=== PATIENT | female | born 1960 | race Caucasian/White ===

== ENCOUNTER 2022-02-07 15:12 | Outpatient (CLI) | payer OTHER, SELFPAY ==
[2022-02-07 15:07] LABS: Albumin* 4.8 g/dL (3.3-5.0); Chloride* 104 mmol/L (96-114); Sodium* 139 mmol/L (135-149)
[2022-02-07 15:08] LABS: Potassium* 4.7 mmol/L (3.6-5.1)
[2022-02-07 15:10] LABS: Alkaline Phosphatase* 66 U/L (40-150); Aspartate Amino Transferase* 35 U/L (12-35); Bilirubin Total* 0.7 mg/dL (0.1-1.5); Blood Urea Nitrogen* 18 mg/dL (7-30); Carbon Dioxide* 26 mmol/L (20-32); Cholesterol* 209 mg/dL (90-199); Creatinine* 0.9 mg/dL (0.5-1.5); Estimated Glomerular Filt Rate 74 ml/min; Glucose* 79 mg/dL (60-115); Total Protein* 7.3 g/dL (6.0-8.3)
[2022-02-07 15:11] LABS: Alanine Aminotransferase* 46 U/L (4-35); HDL Cholesterol* 56 mg/dL (>=50); LDL Cholesterol Calculated 136 mg/dL (<100); Triglycerides* 86 mg/dL (40-149)
== END 2022-02-07 15:13 | disposition home or self-care (01) ==
PROVIDERS: PCP Physician Assistant Medical; Visit Provider Physician Assistant Medical
DX: Z01.419 Encounter for gynecological examination (general) (routine) without abnormal findings (principal); I10 Essential (primary) hypertension; D68.51 Activated protein C resistance; Z13.6 Encounter for screening for cardiovascular disorders; Z13.29 Encounter for screening for other suspected endocrine disorder
CPT/HCPCS: 80053; 80061; 84443

== ENCOUNTER 2022-06-13 13:41 | Outpatient (CLI) | payer OTHER, SELFPAY ==
--- NOTE | 2022-06-13 14:00 | CRLHL7_ITS ---
For Patients: As a result of the Century Cures Act, medical imaging exams and procedure reports are released immediately into your electronic medical record. You may view this report before your referring provider. If you have questions, please contact your health care provider. BILATERAL SCREENING MAMMOGRAM WITH COMPUTER-AIDED DETECTION AND TOMOSYNTHESIS TECHNIQUE: CC and MLO views were obtained. These mammographic images have been obtained using full-field digital technique. These mammographic images were interpreted with the benefit of computer-aided detection. Breast Tomosynthesis was used in this interpretation. COMPARISON FILM: 02/02/14. FINDINGS: The breasts are heterogeneously dense, which may obscure small masses IMPRESSION: There is no radiographic evidence for malignancy. ASSESSMENT: BI-RADS Category 1: Negative RECOMMENDATION: Routine screening mammogram in 1 year. A lay language report of this examination will be provided to the patient. Jericho Macario M.D. Diagnostic Radiologist [email or web address] YASMEEN/Dictated by: Jericho Macario MD @ 06/14/2022 8:39:00 AM (Electronically Signed)
== END 2022-06-13 13:42 | disposition home or self-care (01) ==
LOC: MAMMO 13:43
PROVIDERS: PCP Physician Assistant Medical; Visit Provider Physician Assistant Medical
DX: Z12.31 Encounter for screening mammogram for malignant neoplasm of breast (principal); R92.2 Inconclusive mammogram
CPT/HCPCS: 77063; 77067

== ENCOUNTER 2023-03-14 09:35 | Outpatient (CLI) | payer OTHER, SELFPAY | END 2023-03-14 09:36 | disposition home or self-care (01) | LOC: NFLDREF 03-19 11:46 | PROVIDERS: PCP Physician Assistant Medical; Referring Provider Physician Assistant Medical; Visit Provider Family Medicine | DX: I10 Essential (primary) hypertension (principal); Z13.220 Encounter for screening for lipoid disorders; Z13.228 Encounter for screening for other metabolic disorders | CPT/HCPCS: 80053; 80061; 82043; 82570 ==

== ENCOUNTER 2023-04-03 07:57 | Outpatient (CLI) | payer OTHER, SELFPAY ==
--- NOTE | 2023-04-03 08:15 | CRLHL7_ITS ---
For Patients: As a result of the Century Cures Act, medical imaging exams and procedure reports are released immediately into your electronic medical record. You may view this report before your referring provider. If you have questions, please contact your health care provider. Technique: Double-contrast upper GI performed after the uneventful administration of effervescent crystals and thick barium followed by thin barium. Fluoroscopy time 68 seconds. Indication: Gastroesophageal reflux disease without esophagitis,chest tightness Comparison: CT chest 01/09/2016 Findings: Swallowing mechanism: Normal. Esophageal motility: Slightly decreased. Gastroesophageal reflux: Spontaneous reflux to the proximal esophagus. Hernia: 6.2 x 5.8 cm sliding hiatal hernia. Esophagus, stomach and duodenal bulb mucosa: Normal mucosa. No stricture or mass. Incidental small Zenker diverticulum noted. Impression: Moderate sliding hiatal hernia measuring 6.2 cm. Spontaneous reflux to the proximal esophagus with mild decreased esophageal motility. Dictated by Jericho Macario MD @ 04/03/2023 9:24:24 AM (Electronically Signed)
== END 2023-04-03 07:58 | disposition home or self-care (01) ==
LOC: RAD 07:59
PROVIDERS: PCP Physician Assistant Medical; Visit Provider Family Medicine
DX: K21.9 Gastro-esophageal reflux disease without esophagitis (principal); K44.9 Diaphragmatic hernia without obstruction or gangrene
CPT/HCPCS: 74246

== ENCOUNTER 2023-06-23 09:59 | Outpatient (CLI) | payer OTHER, SELFPAY ==
--- NOTE | 2023-06-23 10:15 | MM_ITS ---
Patient: THA CATES Facility:?[facility] Patient ID:?[id number] Site Patient ID:?[id number]. Site :?1960 Study:?XRay-Breast Bilateral 3D W/CAD-06/23/2023 10:19:34 AM Ordering Physician:Nano Final Report: BILATERAL DIGITAL SCREENING MAMMOGRAM WITH COMPUTER-AIDED DETECTION WITH TOMOSYNTHESIS CLINICAL HISTORY: Routine screening exam. COMPARISON: 06/13/2022, 02/02/2014. TECHNIQUE: Digital mammogram in CC and MLO projections including computer-aided detection (CAD) with Tomosynthesis. BREAST COMPOSITION: The breasts are heterogeneously dense, which may obscure small masses. FINDINGS: RIGHT Breast: No suspicious findings LEFT Breast: Focal nodular density within the retroareolar plane 7 cm from the nipple, slightly medial. IMPRESSION: LEFT breast asymmetry/mass. RECOMMENDATIONS: Additional mammographic views of the LEFT breast including 3D spot compression CC/MLO. LEFT breast ultrasound may also be required. [facility] will contact the patient. BI-RADS Category 0: Incomplete: Need Additional Imaging Evaluation and/or Prior Mammograms for Comparison. A lay language report of this examination will be provided to the patient. Dictated by Jericho Macario MD @ 06/23/2023 10:35:29 AM/CRL:eliza PT/Dictated by: Jericho Macario MD @ 06/23/2023 10:35:00 AM Signed by:?Jericho Macario MD @06/23/2023 12:00:18 PM (Electronic Signature)
== END 2023-06-23 10:00 | disposition home or self-care (01) ==
LOC: MAMMO 09:59
PROVIDERS: PCP Physician Assistant Medical; Visit Provider Physician Assistant Medical
DX: Z12.31 Encounter for screening mammogram for malignant neoplasm of breast (principal); N63.20 Unspecified lump in the left breast, unspecified quadrant; R92.2 Inconclusive mammogram
CPT/HCPCS: 77063; 77067

== ENCOUNTER 2023-07-08 08:24 | Outpatient (CLI) | payer OTHER, SELFPAY ==
--- NOTE | 2023-07-08 08:45 | MM_ITS ---
Patient: THA CATES Facility:?[facility] Patient ID:?[id number] Site Patient ID:?[id number]. Site :?1960 Study:?XRay-Breast Left 3D W/CAD-07/08/2023 9:28:51 AM Ordering Physician:Nano Final Report: DIGITAL DIAGNOSTIC LEFT MAMMOGRAM USING TOMOSYNTHESIS AND COMPUTER-AIDED DETECTION LEFT BREAST ULTRASOUND CLINICAL HISTORY: LEFT breast mass/asymmetry. COMPARISON: 06/23/2023, 06/13/2022, 02/02/2014. TECHNIQUE: Digital LEFT mammogram in two projections. Tomosynthesis and CAD utilized. Real-time ultrasound imaging of LEFT breast with imaging documentation. Scanning was performed by both the technologist and the radiologist. BREAST COMPOSITION: The breasts are heterogeneously dense, which may obscure small masses. FINDINGS: 3D spot compression CC/MLO LEFT breast mammogram images submitted. Persistent nodular density within the upper inner quadrant without architectural distortion. No suspicious calcifications or adenopathy. Targeted sonogram upper inner quadrant 6 cm from the nipple demonstrates a small hypoechoic structure at mid depth measuring 4 x 3 x 3 millimeters. IMPRESSION: Indeterminate hypoechoic nodular structure LEFT breast 10 o`clock 6 cm from the nipple measuring 4 millimeters. RECOMMENDATIONS: Ultrasound-guided biopsy recommended. Results and recommendations discussed with the patient. BI-RADS Category 4: Suspicious A lay language report of this examination will be provided to the patient. Dictated by Jericho Macario MD @ 07/08/2023 11:56:48 AM jj/Dictated by: Jericho Macario MD @ 07/08/2023 11:56:00 AM Signed by:?Jericho Macario MD @07/08/2023 1:04:45 PM (Electronic Signature)
--- NOTE | 2023-07-08 09:15 | US_ITS ---
Patient: THA CATES Facility:?[facility] Patient ID:?[id number] Site Patient ID:?[id number]. Site :?1960 Study:?US-Breast Left DR NATARAJAN TO READ-07/08/2023 9:28:18 AM Ordering Physician:?BEL GRAY Final Report: PLEASE SEE DIGITAL DIAGNOSTIC LEFT MAMMOGRAM PERFORMED SAME DAY CRL:brock gutiérrez/Dictated by: Jericho Natarajan MD @ 07/08/2023 11:56:00 AM Signed by:?Jericho Natarajan MD @07/08/2023 1:04:44 PM (Electronic Signature)
== END 2023-07-08 08:25 | disposition home or self-care (01) ==
LOC: MAMMO 08:24
PROVIDERS: PCP Physician Assistant Medical; Visit Provider Physician Assistant Medical
DX: N63.20 Unspecified lump in the left breast, unspecified quadrant (principal); R92.8 Other abnormal and inconclusive findings on diagnostic imaging of breast
CPT/HCPCS: 76642; 77065; G0279

== ENCOUNTER 2023-07-28 09:01 | Outpatient (CLI) | payer OTHER, SELFPAY ==
--- NOTE | 2023-07-28 09:15 | US_ITS ---
Patient: THA CATES Facility:?[facility] Patient ID:?[id number] Site Patient ID:?[id number] Site :?1960 Study:?US-Breast Left DSM TO READ-07/28/2023 9:45:27 AM Ordering Physician:AVA GRAY Final Report: ULTRASOUND-GUIDED BREAST BIOPSY AND POST-BIOPSY DIGITAL MAMMOGRAM FOR BIOPSY MARKER PLACEMENT CLINICAL HISTORY: Indeterminate hypodense structure LEFT breast. COMPARISON STUDIES: 07/08/2023, 06/23/2023. TECHNIQUE: Real-time ultrasound with image documentation was used for targeting the breast lesion. Core biopsy specimens were obtained using an automated gun with a 18- gauge biopsy needle. Post-biopsy CC and ML digital mammograms were obtained to document position of the biopsy marker. CONSENT and TIME OUT: The procedure, risks, and alternatives were explained to the patient and a consent was signed. [place] Protocol was followed including pre-procedure verification that relevant information/documentation was available, reviewed and properly matched to the patient; consent accurate and complete; and equipment and supplies available. Time Out was conducted just prior to starting procedure to verify the four required elements: patient identity, correct side/site marked (if applicable), procedure, relevant images/results properly labeled and displayed (if applicable). PROCEDURE: The patient was positioned supine on the ultrasound table. The breast was prepped with ChloraPrep. 8 cc of 1 percent lidocaine used for local anesthesia. Core samples were obtained. A sterile metal biopsy clip was placed percutaneously to shaina the lesion position within the breast. The specimens were placed in 10% formalin and sent to the pathology department. Pressure was held on the biopsy site until all bleeding subsided. The skin incision was closed with Steri-Strips. An ice pack was positioned over the biopsy site. Post-biopsy instructions were reviewed with the patient, and a written copy was given to her. LATERALITY: LEFT breast. LESION: Hypoechoic nodular structure measuring 4 x 3 x 3 millimeters at 10 o`clock 6 cm from the nipple. SUSPICION FOR MALIGNANCY: Medium. NUMBER OF SAMPLES: 5. BIOPSY CLIP SHAPE: Oval. PROXIMITY OF CLIP TO TARGET: Within the lesion. IMPRESSION: Ultrasound-guided breast biopsy. When the pathology report is available, an addendum to this report will be made. ACR not applicable Dictated by Jericho Macario MD @ 07/28/2023 12:13:33 PM jj/Dictated by: Jericho Macario MD @ 07/28/2023 12:13:00 PM ----ADDENDUM--- ADDENDUM: Pathology consistent with proliferative fibrocystic change. No evidence of atypia or malignancy. This is concordant. Resume annual BILATERAL screening mammography. Dictated by: Jericho Macario MD @07/30/2023 12:23:48 PM/RAFAEL:kate Signed by:?Jericho Macario MD @07/28/2023 3:52:46 PM (Electronic Signature)
--- NOTE | 2023-07-28 10:00 | MM_ITS ---
Patient: THA CATES Facility:?[facility] Patient ID:?[id number] Site Patient ID:?[id number] Site :?1960 Study:?XRay-Breast Left 2D w/ CAD POST CLIP PLACEMENT-07/28/2023 9:49:39 AM Ordering Physician:Nano Final Report: PLEASE SEE ULTRASOUND-GUIDED LEFT BREAST BIOPSY PERFORMED SAME DAY CRL:brock gutiérrez/Dictated by: Jericho Macario MD @ 07/28/2023 12:06:00 PM Signed by:?Jericho Macario MD @07/28/2023 3:52:48 PM (Electronic Signature)
== END 2023-07-28 09:02 | disposition home or self-care (01) ==
LOC: US 09:01
PROVIDERS: PCP Physician Assistant Medical; Visit Provider Physician Assistant Medical
DX: N63.20 Unspecified lump in the left breast, unspecified quadrant (principal); N60.02 Solitary cyst of left breast; R92.8 Other abnormal and inconclusive findings on diagnostic imaging of breast
CPT/HCPCS: 19083; 77065; 88305; A4648; A4649

== ENCOUNTER 2024-05-26 09:37 | Outpatient (CLI) | payer BC, SELFPAY | END 2024-05-26 09:38 | disposition home or self-care (01) | LOC: NFLDREF 05-28 09:48 | PROVIDERS: PCP Physician Assistant Medical; Referring Provider Physician Assistant Medical; Visit Provider Physician Assistant Medical | DX: I10 Essential (primary) hypertension (principal); D68.51 Activated protein C resistance; M54.50 Low back pain, unspecified; Z13.29 Encounter for screening for other suspected endocrine disorder; Z13.6 Encounter for screening for cardiovascular disorders | CPT/HCPCS: 80053; 80061; 84443 ==

== ENCOUNTER 2024-06-08 08:34 | Outpatient (CLI) | payer BC, SELFPAY ==
--- NOTE | 2024-06-08 09:37 | P.ANES_ITS ---
Anesthesia Charges Start Date/Time Anesthesia Start Date: 06/08/24 Anesthesia Start Time: 09:12 Stop Date/Time Anesthesia Stop Date: 06/08/24 Anesthesia Stop Time: 09:36 Coding CPT Codes CPT Codes: NUPURS LWR INTST NDSC NOS - 62682 ([id number]) P2 - PATIENT W/MILD SYST DISEASE, QZ - SENIOR ASIC ENGINEER SVC W/O INSTANT POTATO PROCESSING SUPERVISOR BY
--- NOTE | 2024-06-08 09:37 | W.ANESCHARGE ---
Anesthesia Charges Start Date/Time Anesthesia Start Date: 06/08/24 Anesthesia Start Time: 09:12 Stop Date/Time Anesthesia Stop Date: 06/08/24 Anesthesia Stop Time: 09:36 Coding CPT Codes CPT Codes: NUPURS LWR INTST NDSC NOS - 02773 ([id number]) P2 - PATIENT W/MILD SYST DISEASE, QZ - SVP DIGITAL AD SALES SVC W/O LINE SUPERVISOR BY
== END 2024-06-08 08:35 | disposition home or self-care (01) ==
LOC: OP CLINIC 08:34
PROVIDERS: PCP Physician Assistant Medical; Visit Provider Internal Medicine
DX: Z12.11 Encounter for screening for malignant neoplasm of colon (principal); D12.3 Benign neoplasm of transverse colon; D12.4 Benign neoplasm of descending colon; K57.30 Diverticulosis of large intestine without perforation or abscess without bleeding
CPT/HCPCS: 00811; 45380; 88305; J2704

== ENCOUNTER 2024-08-19 13:51 | Outpatient (CLI) | payer BC, SELFPAY ==
--- NOTE | 2024-08-19 14:00 | CRLHL7_ITS ---
For Patients: As a result of the Century Cures Act, medical imaging exams and procedure reports are released immediately into your electronic medical record. You may view this report before your referring provider. If you have questions, please contact your health care provider. INDICATION: BILATERAL SCREENING MAMMOGRAM, ASYMPTOMATIC 63 Y/O FEMALE COMPARISON: 06/23/2023, 06/13/2022, 02/02/2014 TECHNIQUE: Digital mammogram in CC and MLO projections including computer-aided detection (CAD) and tomosynthesis. BREAST COMPOSITION: There are scattered areas of fibroglandular density. FINDINGS: No suspicious findings. ASSESSMENT: BI-RADS 2 Benign RECOMMENDATION: Annual screening mammogram. A lay language report of this examination will be provided to the patient. Dictated by: Jericho Macario MD @ 08/20/2024 09:31:41 (Electronically Signed)
== END 2024-08-19 13:52 | disposition home or self-care (01) ==
LOC: MAMMO 13:51
PROVIDERS: PCP Physician Assistant Medical; Visit Provider Physician Assistant Medical
DX: Z12.31 Encounter for screening mammogram for malignant neoplasm of breast (principal)
CPT/HCPCS: 77063; 77067

== ENCOUNTER 2024-12-02 09:01 | Outpatient (CLI) | payer BC, SELFPAY ==
--- NOTE | 2024-12-02 09:15 | CRLHL7_ITS ---
For Patients: As a result of the Century Cures Act, medical imaging exams and procedure reports are released immediately into your electronic medical record. You may view this report before your referring provider. If you have questions, please contact your health care provider. INDICATION: Chronic low back pain. Radiculopathy. TECHNIQUE : Lumbar spine MRI without contrast. COMPARISON: Lumbar spine radiographs from 09/23/2024. FINDINGS : Five lumbar type vertebral bodies, with the last fully formed disc space designated as L5-S1. Normal lumbar lordotic curve. No recent compression fracture or marrow replacing process. Lower cord/conus signal is normal. The conus terminates at a normal location. No intradural lesion. No extraspinal soft tissue abnormalities. Discs/Endplates: Mild disc height loss and disc desiccation L1-2 and L2-3. Disc dehydration at L3-4 and L4-5. Findings at individual levels as follows: T11-12: Minimal disc bulge. No spinal canal or neural foraminal stenosis. T12-L1: No spinal canal or neural foraminal stenosis. L1-2: Mild disc bulge. Bilateral low-grade facet arthrosis. No spinal canal or neural foraminal stenosis. L2-3: Mild disc bulge. A superimposed left-sided intraforaminal protrusion. Bilateral facet arthrosis. No spinal canal or neural foraminal stenosis. L3-4: Mild disc bulge. Bilateral low-grade facet arthrosis. No spinal canal or neural foraminal stenosis. L4-5: Trace anterolisthesis. Mild disc bulge. Bilateral facet arthrosis. A facet joint synovial cyst on the right contacts several right-sided cauda equina nerve roots. Mild to moderate spinal canal stenosis. No neural foraminal stenosis. Stir hyperintensity within the posterior elements bilaterally, consistent with stress reaction/degenerative inflammation. L5-S1: Mild disc bulge. Bilateral facet arthrosis with small effusion on the left. Mild bilateral foraminal stenosis. No spinal canal stenosis. Imaged SI joints: Minimal arthrosis. Imaged sacrum: Within normal limits. IMPRESSION: 1. No acute fracture or marrow replacing process. 2. At L4-5, [id number] spinal canal stenosis. Trace anterolisthesis and bilateral facet arthrosis, with synovial cyst on the right. Stress reaction/reactive inflammation involving the posterior elements. 3. Scattered lumbar spondylosis elsewhere without high-grade spinal canal/neural foraminal stenosis or compression of neural structures. Dictated by Jose A Ames MD @ 12/03/2024 2:05:13 PM (Electronically Signed)
--- NOTE | 2024-12-02 10:15 | CRLHL7_ITS ---
For Patients: As a result of the Century Cures Act, medical imaging exams and procedure reports are released immediately into your electronic medical record. You may view this report before your referring provider. If you have questions, please contact your health care provider. EXAM: MRI OF THE RIGHT HIP, WITHOUT CONTRAST CLINICAL INDICATION: Chronic right hip pain. COMPARISON PLAIN FILMS: None. COMPARISON CROSS-SECTIONAL IMAGING STUDIES: None. TECHNICAL: Axial, sagittal and coronal PD FS small field of view images of the hip. Coronal T1, PD FS and axial T1 images of the pelvis. FINDINGS: RIGHT HIP: Labrum: Tear of the anterior labrum at the labral chondral junction with 0.5 cm paralabral cyst. Articular Cartilage: Azxb-bt-[id number] chondromalacia in the anterior aspect of the acetabulum with a small amount of subchondral cystic change. Mild thinning of the anterior aspect of the femoral articular cartilage. Minimal hypertrophic changes. Joint Space: No effusion, synovitis or loose body. LEFT HIP: No effusion or subchondral changes. OSSEOUS STRUCTURES: No fracture, marrow edema or marrow replacement process. No evidence for avascular necrosis. MUSCULOTENDINOUS STRUCTURES AND BURSAE: Gluteus Minimus and Medius: No tendon tear or tendinopathy. No muscle atrophy or edema. Bursae: No trochanteric or iliopsoas bursitis. Common Hamstrings: No tendon tear or tendinopathy. Other: Tendons and myotendinous junctions are intact. No muscle atrophy or edema. SOFT TISSUES: No subcutaneous edema, hematoma or fluid collection. OTHER JOINTS: Sacroiliac joints are maintained. Pubic symphysis is maintained. INTRAPELVIC CONTENTS: No mass, fluid collection or adenopathy. No inguinal hernia. NEUROVASCULAR STRUCTURES: No abnormality involving the visualized proximal femoral or proximal sciatic nerves. No aneurysmal dilation of the visualized distal aorta or iliac arterial circulation. IMPRESSION: 1. 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 2. Tear of the right anterior labrum with small paralabral cyst. 3. Remainder unremarkable. Dictated by Angel Garcia MD @ 12/02/2024 12:45:32 PM (Electronically Signed)
== END 2024-12-02 09:02 | disposition home or self-care (01) ==
LOC: MRI 09:02
PROVIDERS: PCP Physician Assistant Medical; Visit Provider Physician Assistant Medical
DX: M25.551 Pain in right hip (principal); M94.251 Chondromalacia, right hip; S73.191A Other sprain of right hip, initial encounter; G89.29 Other chronic pain
CPT/HCPCS: 72148; 73721

== ENCOUNTER 2025-02-21 09:47 | Emergency (ER) | payer BC, SELFPAY ==
[2025-02-21 09:49] VITALS: BP 168/95; PULSE 83; RESP 18; TEMP 37.3; O2SAT 96; BMI 35.5
--- NOTE | 2025-02-21 10:21 | CRLHL7_ITS ---
For Patients: As a result of the Century Cures Act, medical imaging exams and procedure reports are released immediately into your electronic medical record. You may view this report before your referring provider. If you have questions, please contact your health care provider. INDICATION: leg pain, hx of DVT COMPARISON: none TECHNIQUE: A compression venous ultrasound exam was performed of both lower extremities using goldstein scale imaging, color Doppler and spectral Doppler analysis. FINDINGS: Sonographic imaging of the lower extremities demonstrates normal compressibility and color Doppler venous blood flow within the common femoral, deep femoral, and proximal greater saphenous veins. Within the thighs the femoral veins are patent and compressible. At a lower level the popliteal and posterior tibial veins also show normal compressibility and color Doppler venous blood flow. IMPRESSION: Normal venous ultrasound exam. No evidence of deep vein thrombosis within either the left or right lower extremity. Dictated by Jericho Macario MD @ 02/21/2025 11:32:38 AM (Electronically Signed)
--- NOTE | 2025-02-21 10:47 | ED.GENADULT ---
HPI - General Adult General Date Seen: 02/21/25 Chief complaint: Extremity Pain/Injury, Lower Stated complaint: Pain in bilateral and hips possible clot in LT an Time Seen by Provider: 02/21/25 10:12 History of Present Illness HPI narrative: Patient is a 64-year-old woman who is status post lumbar surgery on at [facility]. She has had some pain in her ankles bilaterally as well as her hips bilaterally. She is concerned about possible DVT. Does have a history of DVT about 10 years ago. Is not on any kind of prophylaxis. She noted a lump on the outside of her left ankle this morning that is hard to touch, not tender. She has not had any breathing symptoms. No fevers. She says she called her surgery clinic this morning and was advised to come to the ER. No weakness or numbness, no bowel bladder changes. Related Data Home Medications ?Medication ?Instructions ?Recorded ?Confirmed acetaminophen 325 mg tablet (Pain 1,000 mg PO Q4H PRN 02/21/25 02/21/25 Relief (acetaminophen)) oxycodone 5 mg tablet PO 02/21/25 sennosides 8.6 mg tablet (Natural 8.6 mg PO BID 02/21/25 02/21/25 Senna Laxative) Previous Rx's ?Medication ?Instructions ?Recorded lisinopril 5 mg tablet 5 mg PO QDAY #90 tabs 05/26/24 Allergies Allergy/AdvReac Type Severity Reaction Status Date / Time mold Allergy Mild Congested Verified 02/21/25 10:02 Review of Systems Status of ROS: Reports: 6 or more systems reviewed and unremarkable except as noted in History and below [facility] Medical History Deep vein thrombosis (DVT) ?I82.409 - Acute embolism and thrombosis of unspecified deep veins of unspecified lower extremity (ICD-10) Surgical History History of D&C ?Z98.890 - Other specified postprocedural states (ICD-10) History of knee surgery ?Z98.890 - Other specified postprocedural states (ICD-10) History of appendectomy ?Z90.49 - Acquired absence of other specified parts of digestive tract (ICD-10) Family History Mother High blood pressure Father Bladder cancer Bone cancer Other Colorectal cancer Social History Narrative: Non smoker Consumes alcohol occasionally Does not use illicit drugs What is your current living situation?: I presently have a place to live Problems where you live: no known problems In the past 12 months, utilities in danger of being shut off: no In past 12 months, lack of transportation kept you from medical appts, meetings, work, or getting things needed for daily living: no In the past 12 mos, have been you worried that your food would run out before you had money to buy more?: never true In the past 12 mos, the food you bought just didn't last and you didn't have money to buy more?: never true Smoking Status: Never smoker How often do you have a drink containing alcohol: monthly or less How often do you have six or more drinks on one occasion: Never AUDIT-C Alcohol total score: 1 Non-prescribed substance use: denies use How often does anyone, including family, friends and others, physically hurt you: never How often does anyone, including family, friends and others, insult or talk down to you: never How often does anyone, including family, friends and others, threaten you with harm: never How often does anyone, including family, friends and others, scream or curse at you: never Exam Narrative: Exam Narrative: Vital signs reviewed In general, alert, nontoxic woman. She looks comfortable. Back: I removed her dressing, incisions are normal in appearance, there is no significant swelling, no erythema, no drainage. Extremities: Bilateral legs are normal, I do not see any swelling, she does not have calf tenderness or erythema. The lump that she is referencing in her left ankle is a small mobile firm nodule that overlies the peroneus tendons. Skin: Warm and dry, no erythema rashes. Neurologic: She is using a walker for stability of gait but strength is 5 of 5 in bilateral lower extremities. Sensation intact light touch. Const: Vital Signs, click to edit/add: Vital Signs - 24 hr 02/21/25 09:49 02/21/25 11:38 Temperature 99.1 F Pulse Rate [Pulse Oximeter] 83 85 Respiratory Rate 18 20 Blood Pressure [Ri t Upper Arm] 168/95 H 168/109 H Pulse Oximetry 96 98 Oxygen Delivery Me thod Room Air Room Air Course Course ED Course: I ordered an ultrasound of her legs just to rule out DVT given her past medical history. This is preliminarily read as negative. The lesion on her ankle feels consistent with a ganglion cyst, discussed with her I do not think this is related to a blood clot. This can be followed up if needed with Orthopedics. With regard to her leg pain, I suspect that this is simply postoperative, she is currently taking Tylenol and oxycodone, she is wondering if there is any anti-inflammatory she can take. Given that she is so recently postoperative, I have asked that she check in with her surgeon to inquire about the appropriateness of either nonsteroidals or prednisone. Return any time for significant worsening or new symptoms such as fevers, leg swelling, severe uncontrolled pain, weakness, numbness etcetera. Otherwise, continue current medications and follow-up for postop check as planned. Diagnosis: Postoperative pain. Recent lumbar surgery. History DVT. Vital Signs Vital signs: Initial Vital Signs Temperature 99.1 F 02/21/25 09:49 Temperature Source Temporal Artery Scan 02/21/25 09:49 Pulse Rate 83 02/21/25 09:49 Respiratory Rate 18 02/21/25 09:49 Blood Pressure 168/95 H 02/21/25 09:49 Blood Pressure Mean 119 H 02/21/25 09:49 Blood Pressure Position Sitting 02/21/25 09:49 Pulse Oximetry 96 02/21/25 09:49 Oxygen Delivery Method Room Air 02/21/25 09:49 Vital Signs Temperature 99.1 F 02/21/25 09:49 Pulse Rate 83 02/21/25 09:49 Respiratory Rate 18 02/21/25 09:49 Blood Pressure 168/95 H 02/21/25 09:49 Pulse Oximetry 96 02/21/25 09:49 Oxygen Delivery Method Room Air 02/21/25 09:49 Temperature 99.1 F 02/21/25 09:49 Pulse Rate 85 02/21/25 11:38 Respiratory Rate 20 02/21/25 11:38 Blood Pressure 168/109 H 02/21/25 11:38 Pulse Oximetry 98 02/21/25 11:38 Oxygen Delivery Method Room Air 02/21/25 11:38 Medical Decision Making Imaging Data Venous US: Attestation: I have reviewed the pertinent imaging results. Radiologist's impression: Patient: THA CATES Facility: [facility] RIS Site . Site : [id number] Study: US-Extremity Bilateral venous-02/21/2025 11:28:44 AM Ordering Physician: Shivam Koo Final Report: INDICATION: leg pain, hx of DVT COMPARISON: none TECHNIQUE: A compression venous ultrasound exam was performed of both lower extremities using goldstein scale imaging, color Doppler and spectral Doppler analysis. FINDINGS: Sonographic imaging of the lower extremities demonstrates normal compressibility and color Doppler venous blood flow within the common femoral, deep femoral, and proximal greater saphenous veins. Within the thighs the femoral veins are patent and compressible. At a lower level the popliteal and posterior tibial veins also show normal compressibility and color Doppler venous blood flow. IMPRESSION: Normal venous ultrasound exam. No evidence of deep vein thrombosis within either the left or right lower extremity. Discharge Plan Discharge Clinical Impression: Post-op pain Patient Disposition: Home, Self-Care Condition: Stable Instructions: Pain Management After Surgery (DC) Additional Instructions: your ultrasound today does not show evidence of blood clot. The lump on your ankle feels like a ganglion cyst to me. These do not require treatment unless causing symptoms. Consider orthopedic follow-up if you would like. With regard to your back, incisions look good today. I would recommend you check in with your surgeon to inquire about the appropriateness of either nonsteroidal anti-inflammatories or a steroid for your leg pain. Follow-up as directed. Return to ER for at any time for new symptoms such as fevers, weakness, bowel or bladder changes. Prescriptions: No Action lisinopril 5 mg tablet 5 mg PO QDAY Qty: 90 3RF oxycodone 5 mg tablet PO acetaminophen [Pain Relief (acetaminophen)] 325 mg tablet 1,000 mg PO Q4H PRN sennosides [Natural Senna Laxative] 8.6 mg tablet 8.6 mg PO BID Follow Up/Referrals: Kelsy Gutierrez PA-C [Primary Care Provider, Family Practice] Stand Alone Forms: [facility] Info Instructions
[2025-02-21 11:38] VITALS: BP 168/109; PULSE 85; RESP 20; O2SAT 98
== END 2025-02-21 11:39 | disposition home or self-care (01) ==
PROVIDERS: Emergency Provider Emergency Medicine; PCP Physician Assistant Medical
DX: G89.18 Other acute postprocedural pain (principal)
CPT/HCPCS: 93970; 99283; 99284